=== PATIENT | male | born 1990 | race Caucasian/White ===

== ENCOUNTER 2017-12-16 19:58 | Emergency (ER) | payer OTHER ==
[~2017-12-16] VITALS: Ht 172.7 cm; Wt 82.0 kg
[2017-12-16 20:12] VITALS: BP 108/65; PULSE 60; RESP 18; O2SAT 98
[2017-12-16 20:16] VITALS: BP 108/65; PULSE 65; RESP 18; O2SAT 99
--- NOTE | 2017-12-16 20:17 | PD ---
HPI Chief Complaint: Syncope Time Seen by Provider: 20:13 Travel History International Travel<30 days: No Contact w/Intl Traveler<30days: No History of Present Illness HPI 27-year-old male patient presents to the ER today after he had a syncopal episode while watching his get a blood draw. She he states that he remembers getting dizzy and going down, was in a seated position, does not remember hitting the floor. He was able to get himself up again but had another syncopal episode according to staff. He has a laceration to his right eyebrow. He denies any chest pains, trouble breathing, or any other issues. Modifying Factors: None Associated Signs & Symptoms: Syncope Risk Factors: None PFSH Social History Tobacco Use: No Allergies-Medications (Allergen,Severity, Reaction): Coded Allergies: No Known Allergies (Verified Allergy, Unknown, 12/16/17) Reported Meds & Prescriptions Reported Meds & Active Scripts Active No Active Prescriptions or Reported Medications Review of Systems Except as stated in HPI: all other systems reviewed are Neg Physical Exam Narrative GENERAL: Well-developed young male patient currently in mild distress. Awake and oriented 3. SKIN: Focused skin assessment warm/dry. HEAD: Small 1 cm laceration to the right eyebrow. Normocephalic. EYES: Pupils equal and round. No scleral icterus. No injection or drainage. ENT: No nasal bleeding or discharge. Mucous membranes pink and moist. NECK: Trachea midline. No JVD. Supple. CARDIOVASCULAR: Regular rate and rhythm. No murmur appreciated. RESPIRATORY: No accessory muscle use. Clear to auscultation. Breath sounds equal bilaterally. GASTROINTESTINAL: Abdomen soft, non-tender, nondistended. Hepatic and splenic margins not palpable. MUSCULOSKELETAL: No obvious deformities. No clubbing. No cyanosis. No edema. NEUROLOGICAL: Awake and alert. No obvious cranial nerve deficits. Motor grossly within normal limits. Normal speech. PSYCHIATRIC: Appropriate mood and affect; insight and judgment normal. Data Data Last Documented VS Vital Signs Date Time Temp Pulse Resp B/P (MAP) Pulse Ox O2 Delivery O2 Flow Rate FiO2 12/16/17 20:16 97 Room Air 12/16/17 20:16 65 18 108/65 (79) Orders Orders Electrocardiogram (12/16/17 20:13) Complete Blood Count With Diff (12/16/17 20:13) Comprehensive Metabolic Panel (12/16/17 20:13) Ct Brain W/O Iv Contrast(Rout) (12/16/17 20:13) Ecg Monitoring (12/16/17 20:13) Iv Access Insert/Monitor (12/16/17 20:13) Oximetry (12/16/17 20:13) Ed Discharge Order (12/16/17 21:22) Labs Laboratory Tests Test 12/16/17 20:25 White Blood Count 11.3 TH/MM3 Red Blood Count 4.68 MIL/MM3 Hemoglobin 14.8 GM/DL Hematocrit 42.8 % Mean Corpuscular Volume 91.3 FL Mean Corpuscular Hemoglobin 31.6 PG Mean Corpuscular Hemoglobin Concent 34.6 % Red Cell Distribution Width 13.0 % Platelet Count 238 TH/MM3 Mean Platelet Volume 8.9 FL Neutrophils (%) (Auto) 44.4 % Lymphocytes (%) (Auto) 44.3 % Monocytes (%) (Auto) 9.0 % Eosinophils (%) (Auto) 1.8 % Basophils (%) (Auto) 0.5 % Neutrophils # (Auto) 5.0 TH/MM3 Lymphocytes # (Auto) 5.0 TH/MM3 Monocytes # (Auto) 1.0 TH/MM3 Eosinophils # (Auto) 0.2 TH/MM3 Basophils # (Auto) 0.1 TH/MM3 CBC Comment DIFF FINAL Differential Comment Blood Urea Nitrogen 16 MG/DL Creatinine 1.07 MG/DL Random Glucose 88 MG/DL Total Protein 7.3 GM/DL Albumin 4.3 GM/DL Calcium Level 8.7 MG/DL Alkaline Phosphatase 63 U/L Aspartate Amino Transf (AST/SGOT) 19 U/L Alanine Aminotransferase (ALT/SGPT) 27 U/L Total Bilirubin 0.7 MG/DL Sodium Level 141 MEQ/L Potassium Level 3.5 MEQ/L Chloride Level 107 MEQ/L Carbon Dioxide Level 26.7 MEQ/L Anion Gap 7 MEQ/L Estimat Glomerular Filtration Rate 82 ML/MIN MDM Medical Decision Making Medical Screen Exam Complete: Yes Emergency Medical Condition: Yes Medical Record Reviewed: Yes Interpretation(s) EKG shows normal sinus rhythm and rate 63 bpm with no signs of acute ST elevations or depressions. Laboratory Tests Test 12/16/17 20:25 White Blood Count 11.3 TH/MM3 (4.0-11.0) Lymphocytes (%) (Auto) 44.3 % (9.0-44.0) Monocytes (%) (Auto) 9.0 % (0.0-8.0) Lymphocytes # (Auto) 5.0 TH/MM3 (1.0-4.8) Monocytes # (Auto) 1.0 TH/MM3 (0-0.9) Estimat Glomerular Filtration Rate 82 ML/MIN (>89) Differential Diagnosis Syncope: Vasovagal versus electrolyte abnormalities versus dehydration versus dysrhythmias rule out intracranial injuries Narrative Course EKG did not show any significant dysrhythmias. CAT scan did not show any signs of acute intracranial injuries. Lab work was fairly unremarkable. He and he is doing well in the ER, was given IV fluids as well. I suspect that this was a vasovagal response. Small laceration to the right eyebrow was irrigated with normal saline and Dermabond placed. Wound care instructions given. Return for any new issues as needed. The plan has been discussed with him he states understanding. Procedures Procedure Narrative Eyebrow laceration: Normal saline was used to irrigate the area, and Dermabond placed to approximate wound. Patient tolerated procedure well. Diagnosis Primary Impression: Syncope Additional Impression: Laceration of right eyebrow Scripts No Active Prescriptions or Reported Meds Disposition: 01 DISCHARGE HOME Condition: Stable Garfield Shaffer MD December 16, 2017 20:17
[2017-12-16 20:39] LABS: BASOPHIL # 0.1 TH/MM3 (0-0.2); BASOPHIL % 0.5 % (0.0-2.0); EOSINOPHIL # 0.2 TH/MM3 (0-0.4); EOSINOPHIL % 1.8 % (0.0-4.0); HEMATOCRIT 42.8 % (39.0-51.0); HEMOGLOBIN 14.8 GM/DL (13.0-17.0); LYMPH % 44.3 % (9.0-44.0); MEAN CELL VOLUME 91.3 FL (80.0-100.0); MEAN CORPUSCULAR HEMOGLOBIN 31.6 PG (27.0-34.0); MEAN CORPUSCULAR HGB CONC 34.6 % (32.0-36.0); MEAN PLATELET VOLUME 8.9 FL (7.0-11.0); NEUT % 44.4 % (16.0-70.0); PLATELET COUNT 238 TH/MM3 (150-450); RED BLOOD COUNT 4.68 MIL/MM3 (4.50-5.90); WHITE BLOOD COUNT 11.3 TH/MM3 (4.0-11.0)
[2017-12-16 20:55] LABS: ALBUMIN 4.3 GM/DL (3.4-5.0); AST (GOT) 19 U/L (15-37); BICARBONATE 26.7 MEQ/L (21.0-32.0); BLOOD UREA NITROGEN 16 MG/DL (7-18); CALCIUM 8.7 MG/DL (8.5-10.1); CHLORIDE 107 MEQ/L (98-107); CREATININE 1.07 MG/DL (0.60-1.30); GLOMERULAR FILTRATION RATE 82 ML/MIN (>89); GLUCOSE,RANDOM 88 MG/DL (74-106); SODIUM (NA) 141 MEQ/L (136-145)
[2017-12-16 20:59] LABS: ALKALINE PHOSPHATASE 63 U/L (45-117); ALT (GPT) 27 U/L (12-78); TOTAL BILIRUBIN ADULT 0.7 MG/DL (0.2-1.0); TOTAL PROTEIN 7.3 GM/DL (6.4-8.2)
--- NOTE | 2017-12-16 21:19 | RADRPT ---
EXAM DATE/TIME: 12/16/2017 20:59 [facility] COMPARISON: No previous studies available for comparison. INDICATIONS : Syncope, hit head RADIATION DOSE: 41.10 CTDIvol (mGy) MEDICAL HISTORY : None SURGICAL HISTORY : None. ENCOUNTER: Initial ACUITY: 1 day PAIN SCALE: 4/10 LOCATION: cranial TECHNIQUE: Multiple contiguous axial images were obtained of the head. Using automated exposure control and adj ustment of the mA and/or kV according to patient size, radiation dose was kept as low as reasonably a chievable to obtain optimal diagnostic quality images. DICOM format image data is available electro nically for review and comparison. FINDINGS: CEREBRUM: The ventricles are normal for age. No evidence of midline shift, mass lesion, hemorrhage or acute in farction. No extra-axial fluid collections are seen. POSTERIOR FOSSA: The cerebellum and brainstem are intact. The 4th ventricle is midline. The cerebellopontine angle i s unremarkable. EXTRACRANIAL: The visualized portion of the orbits is intact. SKULL: The calvaria is intact. No evidence of skull fracture. CONCLUSION: Normal examination. Dre Patterson Jr., MD on December 16, 2017 at 21:16 Board Certified Radiologist. This report was verified electronically.
--- NOTE | 2017-12-17 18:26 | EKG ---
Date Performed: 12/16/2017 Time Performed: 20:13:58 PTAGE: 27 years EKG: Sinus rhythm NORMAL ECG NO PREVIOUS TRACING DOCTOR: Farnaz Rivero Interpretating Date/Time 12/17/2017 18:24:58
== END 2017-12-16 21:50 | disposition home or self-care (01) ==
LOC: NEPE 19:58
DX: R55 Syncope and collapse (principal); S01.111A Laceration without foreign body of right eyelid and periocular area, initial encounter; W19.XXXA Unspecified fall, initial encounter
CPT/HCPCS: 12011; 70450; 80053; 85025; 93005